=== PATIENT | female | born 2000 | race Caucasian/White ===

== ENCOUNTER 2022-11-24 08:48 | Outpatient (CLI) | payer BC, OTHER, SELFPAY ==
[2022-11-24] MEDS ORDERED: Iopamidol 300 61% 100 ML VIAL FS ONE (09:29)
== END 2022-11-24 08:49 | disposition home or self-care (01) ==
LOC: CSHCT 08:48
PROVIDERS: ATTEND Family Medicine
DX: N91.5 Oligomenorrhea, unspecified (principal); R79.89 Other specified abnormal findings of blood chemistry; R93.89 Abnormal findings on diagnostic imaging of other specified body structures
CPT/HCPCS: 74170; 76856; Q9967